=== PATIENT | male | born 1960 | race Caucasian/White ===

== ENCOUNTER → 2019-11-04 | Outpatient (CLI) | payer MEDICARE | LOC: DAH 10:00 → EDSTATUS 11-08 07:45 | PROVIDERS: ATTEND Surgery | DX: Z01.818 Encounter for other preprocedural examination (principal); Z20.828 Contact with and (suspected) exposure to other viral communicable diseases | CPT/HCPCS: C9803; U0003 ==

== ENCOUNTER → 2020-01-22 | Outpatient (CLI) | payer MEDICARE | END | disposition home or self-care (01) | LOC: CANPRESDC → DAH 10:00 → EDSTATUS 01-27 08:00 | PROVIDERS: ATTEND Surgery | DX: U07.1 COVID-19 (principal); Z01.812 Encounter for preprocedural laboratory examination; K21.9 Gastro-esophageal reflux disease without esophagitis | CPT/HCPCS: C9803; U0003 ==

== ENCOUNTER 2020-03-02 06:50 | Day surgery (SDC) | payer MEDICARE ==
[2020-03-02] VITALS (9 sets, daily range): BP systolic 101–145; BP diastolic 50–77
[~2020-03-02] VITALS: Ht 193 cm; Wt 222.3 kg
[~2020-03-02 06:50] MED LIST: ALLO300T2 PO; AMLO-257 PO; APIX5TAB PO; FLEC100T3 PO; HYDR12.54 PO; LOSA50TA64 PO; METO100T14 PO; MULT-264 PO; OMEP20CA12 PO; ROSU20TA31 PO
[2020-03-02] MEDS ORDERED: SODIUM CHLORIDE 0.9% 1000ML 1,000 ML IV ONE (07:43)
[2020-03-02] MEDS ORDERED: PROPOFOL 10 MG/ML 20ML VIAL IV ONE (08:02)
[2020-03-02] MEDS ORDERED: LIDOCAINE HCL-MPF 2% 5ML VIAL ONE (08:04)
== END 2020-03-02 09:00 | disposition home or self-care (01) ==
LOC: ENDO 06:50 → DAH 06:50 → ENDO 09:00
PROVIDERS: ATTEND Surgery
DX: K21.9 Gastro-esophageal reflux disease without esophagitis (principal); E66.01 Morbid (severe) obesity due to excess calories; Z68.44 Body mass index [BMI] 60.0-69.9, adult; Z86.711 Personal history of pulmonary embolism; I10 Essential (primary) hypertension; E78.00 Pure hypercholesterolemia, unspecified; Z79.899 Other long term (current) drug therapy; Z98.890 Other specified postprocedural states
CPT/HCPCS: 43239; A4215; A4221; A4222; A4223; A4606; A4620; A4663; J2704; J3490; J7030